=== PATIENT | male | born 1980 | race Caucasian/White ===

== ENCOUNTER 2020-08-16 18:00 | Emergency (ER) | payer OTHER ==
[~2020-08-16] VITALS: Ht 172.7 cm; Wt 68.0 kg
[2020-08-16 18:00] VITALS: BP 144/88
--- NOTE | 2020-08-16 18:01 | NUR ---
CAME IN ER THIS 39 YEAR OLD MALE PER STRETCHER BROUGHT BY PARAMEDICS, PATIENT FOUND IN THE [place] WITH ALTERED LOC, DROWSY. AIRWAY-INTACT AND ABLE TO RESPOND 2-3WORDS, BREATHING SPONTANEOUSLY AT ROOM AIR, SKIN WARM TO TOUCH, WITH IV CANNULA G20 AT LEFT WRIST. INITIAL VITAL SIGNS TAKEN AND RECORDED, [id number]% AT ROOM AIR. SAFETY MEASURES IN PLACE AND CONTINUE MONITOR. SEEN AND EXAMINED BY DR. GANDARA.
[2020-08-16] MEDS ORDERED: NACL 0.9% 1,000 ML IV ONE (18:15)
--- NOTE | 2020-08-16 18:25 | NUR ---
BLOOD SAMPLE COLLECTED BY HORSE TRAINER, IV FLUID INITIATED
[2020-08-16 18:40] LABS: BASOPHILS % (AUTO) 0.8 % (0.0-2.0); EOSINOPHILS # (AUTO) 0.3 K/uL (0-0.4); EOSINOPHILS % (AUTO) 4.7 % (0.0-4.0); HEMATOCRIT 36.9 % (36-52); HEMOGLOBIN 12.5 g/dL (12.0-18.0); LYMPHOCYTES # (AUTO) 1.8 K/uL (2.0-11.5); LYMPHOCYTES % (AUTO) 32.2 % (20.5-51.1); MEAN CORPUSCULAR HEMOGLOBIN 32 pg (27-31); MEAN CORPUSCULAR HGB CONC 34 g/dL (33-37); MONOCYTES # (AUTO) 0.4 K/uL (0.8-1.0); MONOCYTES % (AUTO) 7.1 % (1.7-9.3); NEUTROPHILS # (AUTO) 3.1 K/uL (1.8-7.7); NEUTROPHILS % (AUTO) 55.2 % (42.2-75.2); PLATELET COUNT (AUTO) 269 K/uL (140-450); RED BLOOD CELL COUNT(AUTO) 3.85 MIL/uL (4.20-6.10); RED CELL DISTRIBUTION WIDTH 12.4 % (11.6-13.7); WHITE BLOOD COUNT (AUTO) 5.6 K/uL (4.8-10.8)
[2020-08-16 18:54] LABS: ALBUMIN 3.5 g/dL (3.4-5.0); ANION GAP 13.6 (8-16); CARBON DIOXIDE 26.6 mmol/L (21-32); POTASSIUM 3.2 mmol/L (3.5-5.1); TOTAL BILIRUBIN 0.4 mg/dL (0.0-1.0)
--- NOTE | 2020-08-16 18:59 | NUR ---
POTASSIUM LEVEL-3.2, DR. GANDARA INFORMED, AWAITS ORDER
--- NOTE | 2020-08-16 19:20 | NUR ---
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
[2020-08-16 21:40] VITALS: BP 142/88
--- NOTE | 2020-08-16 21:50 | NUR ---
Patient discharged with v/s stable. Written and verbal after care instructions given and explained. Patient verbalized understanding. Ambulatory with steady gait. All questions addressed prior to discharge. Advised to follow up with PMD. Pt states he will take bus home. IV removed and pressure applied.
--- NOTE | 2020-08-19 22:30 | NUR ---
LATE ENTRY- Normal saline 0.9% IV fluids discontinued at 194
== END 2020-08-16 21:50 | disposition home or self-care (01) ==
LOC: MED 18:00
DX: F11.10 Opioid abuse, uncomplicated (principal)
CPT/HCPCS: 36415; 80053; 85025; 96360; 99283; J7030

== ENCOUNTER 2020-08-25 21:05 | Emergency (ER) | payer OTHER ==
[~2020-08-25] VITALS: Ht 180.3 cm; Wt 104.3 kg
[2020-08-25 21:05] VITALS: BP 144/92
--- NOTE | 2020-08-25 21:05 | NUR ---
39 y/o male BIBA to ED c/o Overdose on fentanyl. Pt admits to fentanyl and alcohol use today. Per fire pt's friends state he fell , but denies any LOC or trauma. Pt was found unresponsive w/ pulse. IM 2mg Narcan administered w/ no response. Fire placed 18g IV to left a/c and administered 1mg Narcan IVP w/ response. Pt currently A/O x4 awake, alert and able to follow commands. Pupils sluggish, PERRLA. RR even and unlabored. S1 S2 noted. Pt denies n/v/d/chest pain/ sob. Pt placed on radiation monitor, pulse ox and bp cuff. VSS. Pt resting in bed, locked and in lowest position, HOB elevated, side rail x2 for pt safety. Pt provided w/ blanket. No acute distress noted. ERMD made aware of pt status. pmh: denies NKA
--- NOTE | 2020-08-25 21:05 | NUR ---
[facility] TO ER BED 11
--- NOTE | 2020-08-25 21:06 | NUR ---
Pt states he does not remember falling or remember anything until he was in ambulance. Pt does remember taking fentanyl and drinking alcohol. Pt is A/O x 4 at this time.
--- NOTE | 2020-08-25 21:10 | NUR ---
18g IV placed in Left a/c prior to ER arrival. Flushed w/ 10 cc NS . IV patent , no redness , swelling or pain noted at IV site.
--- NOTE | 2020-08-25 21:16 | NUR ---
LYNNETTE Hills at bedside for medical evaluation.
[2020-08-25] MEDS ORDERED: NALO4SPR NS (21:31)
--- NOTE | 2020-08-25 22:10 | NUR ---
Pt laying w/ eyes closed in bed, locked and in lowest position, HOB elevated, side rail x2 for pt safety. Visible rise and fall of chest, arousable to verbal stimulation. VSS. No acute distress noted at this time.
--- NOTE | 2020-08-25 23:35 | NUR ---
Pt sleeping , visible rise and fall of chest. RR even and unlabored. VSS. No acute distress noted.
--- NOTE | 2020-08-26 00:03 | NUR ---
Pt states to call his brother Guero at [phone] to pick him up.
--- NOTE | 2020-08-26 01:30 | NUR ---
Spoke w/ brother Guero per pt instructions he will be here in next 20 minutes to pick pt up.
--- NOTE | 2020-08-26 01:35 | NUR ---
IV removed, catheter intact and site benign. Applied folded 4x4 gauze and tape to stop bleeding.
[2020-08-26 01:41] VITALS: BP 119/69
--- NOTE | 2020-08-26 01:41 | NUR ---
Patient discharged with v/s stable. Written and verbal after care instructions given and explained. Patient alert, oriented and verbalized understanding of instructions. Ambulatory with steady gait. All questions addressed prior to discharge. ID band removed. Patient advised to follow up with PMD. Rx of Narcan given. Patient educated on indication of medication including possible reaction and side effects. Opportunity to ask questions provided and answered. Pt provided w/ alcohol & substance abuse resource packet. Pt provided w/ jello and applesauce at time of discharge.
== END 2020-08-26 01:41 | disposition home or self-care (01) ==
LOC: MED 21:05
DX: T40.411A Poisoning by fentanyl or fentanyl analogs, accidental (unintentional), initial encounter (principal); Y92.89 Other specified places as the place of occurrence of the external cause; F17.210 Nicotine dependence, cigarettes, uncomplicated; F14.10 Cocaine abuse, uncomplicated
CPT/HCPCS: 81002; 99283; 99285

== ENCOUNTER 2020-10-24 15:14 | Emergency (ER) | payer OTHER ==
[~2020-10-24] VITALS: Ht 180.3 cm; Wt 81.6 kg
[~2020-10-24 15:14] MED LIST: NALO4SPR NS
[2020-10-24 15:17] VITALS: BP 133/76
== END 2020-10-24 15:48 | disposition left against medical advice (07) ==
LOC: MED 15:14
DX: R41.82 Altered mental status, unspecified (principal); Z53.21 Procedure and treatment not carried out due to patient leaving prior to being seen by health care provider